=== PATIENT | female | born 1995 | race Caucasian/White ===

== ENCOUNTER 2020-04-23 16:42 | Emergency (ER) | payer SELFPAY ==
--- NOTE | 2020-04-23 19:59 | ER Document Report ---
ED General - General Chief Complaint: Headache >24 hrs old Stated Complaint: HEADACHE,MUSCLE PAIN Time Seen by Provider: 04/23/20 19:54 Mode of Arrival: Ambulatory Information source: Patient Notes: 04/23/20 18:24 - ED Nursing Note by WILLEM EDWARDS Num: [id number] : 1995 Patient Age: 25 Pt ambulatory to ED, C/C ERNST to L side of head (which she describes as pressure) X2 weeks, worse over past 2 days. Also c/o tingling to L arm X2 days and dizzin ess with attempting to stand. Advises 2 days ago experienced "tunnel vision" while in shower and everything began to go black, but she recovered and did not fall. No other episodes. Denies fever and N/V. 1 episode of diarrhea 3 days ago. Hx: traumatic brain injury at 4yo., advises has had ERNST all of her life, but this one feels different. Pt AOX4, NAD, rates pain 3 out of 5 currently. Takes tylenol and ibuprophen for ERNST. Initialized on 04/23/20 18:24 - END OF NOTE my notes 25-year-old female arrives by POV. is in parking lot in the car waiting for her return. Patient reports she has had 2 weeks of on and off severe left temporal and periorbital headache. Patient has had on and off headaches throughout her entire life since she was dropped on her head as a 4-year-old or so she was told by her parents. However she is concerned because for the last 2 days she has had very severe 10 out of 10 pain worse in the morning and also when she was in the shower earlier today with weakness in her legs and blurry vision. She denies any prior history of multiple sclerosis and no family members have MS. She does have a grandfather with aneurysms and his brother from a cerebral aneurysm. Patient denies she has been a with a 3-year-old daughter and 1-year-old son. She had hyperglycemia while she was caring the 1-year-old son. Patient reports her sugar has been running normal since delivery a year ago. Patient reports her headache now is a 5 out of 10. She denies any trauma or abuse or spider bites tick bites fleabites animal bites foreign travel foreign people exposure coronavirus exposure. - HPI Onset: This morning Onset/Duration: Gradual, Persistent, Worse Quality of pain: Achy Severity: Severe Pain Level: 5 Associated symptoms: Headache, Weakness Exacerbated by: Movement Relieved by: Denies Similar symptoms previously: Yes Recently seen / treated by doctor: No - Related Data Allergies/Adverse Reactions: No Known Allergies Allergy (Unverified 04/23/20 19:26) Past Medical History - General Information source: Patient - Social History Smoking Status: Current Every Day Smoker Cigarette use (# per day): Yes Chew tobacco use (# tins/day): No Smoking Education Provided: Yes Frequency of alcohol use: Occasional Drug Abuse: Marijuana Lives with: Family Family History: Reviewed & Not Pertinent Patient has suicidal ideation: No Patient has homicidal ideation: No Review of Systems - Review of Systems Constitutional: See HPI, Weakness EENT: Blurred vision - Vision occurred today. Respiratory: No symptoms reported Gastrointestinal: No symptoms reported Genitourinary: No symptoms reported Female Genitourinary: No symptoms reported Musculoskeletal: No symptoms reported Skin: No symptoms reported Hematologic/Lymphatic: No symptoms reported Neurological/Psychological: Weakness, Other - Near syncope Physical Exam - Vital signs Vitals: Temp Pulse Resp BP Pulse Ox 98.2 F 85 12 121/70 98 04/23/20 16:48 04/23/20 16:48 04/23/20 16:48 04/23/20 16:48 04/23/20 16:48 Interpretation: Normal - General General appearance: Appears well - HEENT Head: Normocephalic, Atraumatic Eyes: Normal Pupils: PERRL Mouth/Lips: Normal Mucous membranes: Normal Pharynx: Normal Neck: Normal - Respiratory Respiratory status: No respiratory distress Chest status: Nontender Breath sounds: Normal Chest palpation: Normal - Cardiovascular Rhythm: Regular Heart sounds: Normal auscultation Murmur: No - Abdominal Inspection: Normal Distension: No distension Bowel sounds: Normal Tenderness: Nontender Organomegaly: No organomegaly - Rectal Hemorrhoids: Other - deferred - Genitourinary Bimanuel exam: Other - deferred - Back Back: Normal - Extremities General upper extremity: Normal inspection, Nontender, Normal color, Normal ROM, Normal temperature General lower extremity: Normal inspection, Nontender, Normal color, Normal ROM, Normal temperature, Normal weight bearing. No: Bryan's sign - Neurological Neuro grossly intact: Yes Cognition: Normal Orientation: AAOx4 [place] Coma Scale Eye Opening: Spontaneous [place] Coma Scale Verbal: Oriented [place] Coma Scale Motor: Obeys Commands [place] Coma Scale Total: 15 Speech: Normal Motor strength normal: LUE, RUE, LLE, RLE Sensory: Normal - Psychological Associated symptoms: Normal affect - Skin Skin Temperature: Warm Skin Moisture: Dry Course - Vital Signs Vital signs: Temp Pulse Resp BP Pulse Ox 98.2 F 85 12 121/70 98 04/23/20 16:48 04/23/20 16:48 04/23/20 16:48 04/23/20 16:48 04/23/20 16:48 - Laboratory Result Diagrams: 04/23/20 21:10 04/23/20 21:10 Laboratory results interpreted by me: 04/23/20 04/23/20 04/23/20 21:10 21:10 21:10 RDW 14.2 H Lymph % (Auto) 46.7 H Absolute Lymphs (auto) 4.9 H Chloride 110 H Urine Blood SMALL H - Diagnostic Test Radiology reviewed: Reports reviewed Radiology results interpreted by me: 04/23/20 23:08 CT head was NAD per radiologist Critical Care Note - Critical Care Note Comments: I discussed CT findings and lab findings with patient and advised her to follow- up with personal doctor Discharge - Discharge Clinical Impression: Viral syndrome Headache Qualifiers: Headache type: unspecified Headache chronicity pattern: acute headache Intractability: intractable Qualified Code(s): R51 - Headache Condition: Good Disposition: HOME, SELF-CARE Additional Instructions: Follow-up with personal doctor this week return to ER as needed take medicines as directed encourage fluids try to sleep in a dark room after medications. We will perform a coronavirus test tonight but the results will not be back for 1 to 2 days. Prescriptions: Cyproheptadine HCl [Periactin 4 Mg Tablet] 4 mg PO HSP PRN #15 tablet PRN Reason: Azithromycin [Zithromax 250 mg Tablet] 250 mg PO ASDIR PRN #6 tablet PRN Reason: Forms: Return to Work
[2020-04-23] MEDS ORDERED: NORMAL SALINE 1000 ML 1,000 ML IV ONE (20:47)
[2020-04-23] MEDS ORDERED: PROCHLORPERAZINE EDISYLATE INJ 10 MG/2 ML VIAL IV ONE (20:48)
[2020-04-23] MEDS ORDERED: HYDROMORPHONE HCL INJ/PF 2 MG/ML AMPULE IV ONE (20:48)
[2020-04-23 21:32] LABS: ABSOLUTE EOSINOPHILS # (AUTO) 0.2 10^3/uL (0.0-0.6); ABSOLUTE LYMPHOCYTES (AUTO) 4.9 10^3/uL (0.5-4.7); ABSOLUTE MONOCYTES (AUTO) 0.6 10^3/uL (0.1-1.4); ABSOLUTE NEUT (AUTO) 4.7 10^3/uL (1.7-8.2); BASOPHILS % (AUTO) 0.4 % (0-2); EOSINOPHILS % (AUTO) 2.1 % (0-6); HEMATOCRIT 43.6 % (36.0-47.0); HEMOGLOBIN 15.1 g/dL (12.0-15.5); LYMPHOCYTES % (AUTO) 46.7 % (13-45); MEAN CORPUSCULAR HEMOGLOBIN 30.5 pg (27.0-33.4); MEAN CORPUSCULAR HGB CONC 34.6 g/dL (32.0-36.0); MEAN CORPUSCULAR VOLUME 88 fl (80-97); MONOCYTES % (AUTO) 5.9 % (3-13); PLATELET COUNT 346 10^3/uL (150-450); RED BLOOD COUNT 4.95 10^6/uL (3.72-5.28); RED CELL DISTRIBUTION WIDTH 14.2 % (11.5-14.0); SEGMENTED NEUTROPHILS % (AUTO) 44.9 % (42-78); TOTAL CELLS COUNTED % (AUTO) 100 %; WHITE BLOOD COUNT 10.5 10^3/uL (4.0-10.5)
[2020-04-23 21:51] LABS: ALBUMIN 4.4 g/dL (3.5-5.0); ALKALINE PHOSPHATASE 56 U/L (38-126); ANION GAP 7 (5-19); ASPARTATE AMINO TRANSFERASE 18 U/L (14-36); BILIRUBIN,TOTAL 0.3 mg/dL (0.2-1.3); BLOOD UREA NITROGEN 9 mg/dL (7-20); CALCIUM 9.4 mg/dL (8.4-10.2); CARBON DIOXIDE 22 mmol/L (22-30); CHLORIDE 110 mmol/L (98-107); GLUCOSE 83 mg/dL (75-110); TOTAL PROTEIN 6.9 g/dL (6.3-8.2)
[2020-04-23 22:06] LABS: APPEARANCE,URINE CLEAR; BILIRUBIN,URINE NEGATIVE (NEGATIVE); COLOR,URINE YELLOW; GLUCOSE, URINE NEGATIVE (NEGATIVE); KETONES,URINE NEGATIVE (NEGATIVE); LEUKOCYTE ESTERASE,URINE NEGATIVE (NEGATIVE); NITRITE,URINE NEGATIVE (NEGATIVE); PROTEIN,URINE NEGATIVE (NEGATIVE); URINE SPECIFIC GRAVITY 1.013; UROBILINOGEN,URINE NEGATIVE mg/dL (<2.0)
--- NOTE | 2020-04-23 22:51 | RADIOLOGY REPORT (SQ) ---
INDICATION: mcrae. COMPARISON: None CORRELATION: None TECHNIQUE: Noncontrast spiral axial CT images were obtained from the skull base to vertex. This exam was performed according to our departmental dose-optimization program, which includes automated exposure control, adjustment of the mA and/or kV according to patient size and/or use of iterative reconstruction techniques. FINDINGS: There is no evidence of acute intracranial hemorrhage, midline shift, mass effect or mass lesion. Samuels-white differentiation is normal. There is no evidence of acute large territory infarct. Ventricles and extracerebral spaces are within normal limits, for age. The visualized paranasal sinuses there is a retention cysts. The orbits and eyeballs are unremarkable. The mastoid air cells are clear. Skull base and calvarium appear intact. IMPRESSION: No acute intracranial process is identified. The cause of the patient's headache is not identified on this examination.
[2020-04-23 23:59] VITALS: BP 107/70
== END 2020-04-24 00:18 | disposition home or self-care (01) ==
LOC: ER 16:42
DX: B34.9 Viral infection, unspecified (principal); R51 Headache; M79.10 Myalgia, unspecified site; R53.1 Weakness; R55 Syncope and collapse; F17.210 Nicotine dependence, cigarettes, uncomplicated
CPT/HCPCS: 99284; 96361; 96374; 96375; 36415; 84703; 85025; 80053; 81001; 70450; J1170; J0780; J7030